=== PATIENT | female | born 1990 | race Two or more races ===

== ENCOUNTER 2017-06-26 22:29 | Emergency (ER) | payer BC, MEDICAID ==
[~2017-06-26] VITALS: Ht 162.6 cm; Wt 63.0 kg
[2017-06-26 22:56] VITALS: BP 119/68
== END 2017-06-27 02:24 | disposition home or self-care (01) ==
LOC: ER 22:42
DX: O99.511 Diseases of the respiratory system complicating pregnancy, first trimester (principal); J40 Bronchitis, not specified as acute or chronic; Z3A.13 13 weeks gestation of pregnancy